=== PATIENT | male | born 1995 | race Hispanic/Latino ===

== ENCOUNTER 2019-03-23 11:24 | Emergency (ER) | payer OTHER ==
[2019-03-23] MEDS ORDERED: IBUPROFEN 600 MG TABLET ONE (12:37)
== END 2019-03-23 12:42 | disposition home or self-care (01) ==
LOC: EEVIPCON 11:24 → EDH 11:24
DX: S50.01XA Contusion of right elbow, initial encounter (principal); S30.1XXA Contusion of abdominal wall, initial encounter; Y04.2XXA Assault by strike against or bumped into by another person, initial encounter; Y93.89 Activity, other specified; Y92.89 Other specified places as the place of occurrence of the external cause; Y99.8 Other external cause status
CPT/HCPCS: 72170; 73080